=== PATIENT | male | born 1985 | race American Indian/Alaskan Native ===

== ENCOUNTER 2016-09-28 22:12 | Inpatient (IN) | payer MEDICAID ==
--- NOTE | 2016-09-28 22:21 | ED PDOC ---
Psych Transfer Clearance - Clearance Statement Clearance Statement: Reviewed vital signs, lab results and transfer papers. Patient clinically stable for psychiatric admission.
[2016-09-28 22:24] VITALS: O2SAT 100
[2016-09-28] MEDS ORDERED: DiphenhydrAMINE 50 mg/ml Inj IM PRN (23:05)
[2016-09-28] MEDS ORDERED: Alum-Mag Hydrox-Simethicone Susp (30 mL) PO PRN (23:05)
[2016-09-28] MEDS ORDERED: Magnesium Hydroxide Susp 30 ml UD PO PRN (23:05)
[2016-09-29 08:30] LABS: T4 4.64 ug/dl (5.5-11.0)
[2016-09-29 08:43] LABS: THYROID STIMULATING HORMONE 0.9 mIU/ML (0.46-4.68)
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
[2016-09-29 18:05] VITALS: RESP 18; TEMP 97.9
[2016-09-30] MEDS ORDERED: buPROPion SR 150 MG TABLET PO SCH (09:00)
[2016-09-30 09:14] VITALS: PULSE 80
[2016-09-30 09:45] VITALS: BP 103/82
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
== END 2016-09-30 12:15 | disposition home or self-care (01) | DRG 430 ==
LOC: H.ER 22:12 → H.PSYCH 22:20
PROVIDERS: ADMIT Psychiatry & Neurology Psychiatry; ATTEND Psychiatry & Neurology Psychiatry
PROC: GZ51ZZZ Individual Psychotherapy, Behavioral (ICD-10-PCS; 2016-09-28)
PROC: GZHZZZZ Group Psychotherapy (ICD-10-PCS; principal; 2016-09-29)
DX: F39 Unspecified mood [affective] disorder (principal); F14.20 Cocaine dependence, uncomplicated; R45.851 Suicidal ideations; Z59.0 Homelessness; F17.210 Nicotine dependence, cigarettes, uncomplicated